=== PATIENT | female | born 1990 | race American Indian/Alaskan Native ===

== ENCOUNTER 2016-11-28 09:25 | Emergency (ER) | payer MEDICAID ==
--- NOTE | 2016-11-28 09:37 | EDM.PDOC ---
ED HISTORY OF PRESENT ILLNESS - General Chief Complaint: Respiratory Problem Stated Complaint: CHEST PAIN, BAD COLD Time Seen by Provider: 11/28/16 09:33 Source of Information: Reports: Patient, RN, RN notes reviewed History Limitations: Reports: No limitations - History of Present Illness INITIAL COMMENTS - FREE TEXT/NARRATIVE: C/O cough for approx. 4-6 weeks. It start when she got the flu, then Dx'd with bronchitis and tx'd with a Z-Jalil, but didn't get better. A few days ago she developed sharp pains in the left chest and upper back with coughing. Admits to some wheezing and occ. small amount of sputum production. Denies fever or chills. Timing/Duration: Reports: Constant Location, General: Reports: chest Quality: Reports: Sharp Improves with: Reports: None Worsens with: Reports: Breathing (and cough) Context, General: Denies: Activity, Exercise, Lifting, Trauma Associated Symptoms (General): Reports: no other symptoms - Related Data Allergies/ADRs: Allergies Allergy/AdvReac Type Severity Reaction Status Date / Time codeine Allergy Nausea Verified 11/28/16 09:33 Home Meds: Home Meds . 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 ED EXAM, GENERAL - Physical Exam Exam: See Below Exam Limited By: No limitations General Appearance: alert, WD/WN, no apparent distress, obese Ears: normal external exam Nose: normal inspection, normal mucosa, no blood Throat/Mouth: Normal inspection, Normal lips, Normal teeth, Normal gums, Normal oropharynx, Normal voice, No airway compromise Head: atraumatic, normocephalic Neck: normal inspection, supple, non-tender, full range of motion. No: lymphadenopathy (L), lymphadenopathy (R) Respiratory/Chest: no respiratory distress, no accessory muscle use, decreased breath sounds, wheezing (mild scattered wheezes throughout B/L upper lung baez ), other (harsh cough) Cardiovascular: normal peripheral pulses, regular rate, rhythm, no edema, no gallop, no JVD, no murmur, no rub GI/Abdominal: normal bowel sounds, soft, non tender, other (benign obese abdomen ) Back Exam: normal inspection Extremities: normal inspection Neurological: alert, oriented, CN II-XII intact, normal cognition, normal gait, no motor/sensory deficits Psychiatric: normal affect, normal mood Skin Exam: Warm, Dry, Intact, Normal color, No rash Course - Vital Signs Last Recorded V/S: Last Vital Signs Temp 36.4 C 11/28/16 09:44 Pulse 91 11/28/16 09:44 Resp 20 11/28/16 09:44 BP 136/65 11/28/16 09:44 Pulse Ox 100 11/28/16 09:44 - Orders/Labs/Meds Orders: Active Orders 24 hr Category Date Time Status RT Post Treatment Assessment [RC] Click To Edit Care 11/28/16 10:26 Active RT Pre-Treatment Assessment [RC] Click To Edit Care 11/28/16 10:26 Active Chest 2V [CR] Stat Exams 11/28/16 09:51 Taken Labs: Laboratory Tests 11/28/16 Range/Units 09:55 WBC 8.1 (5.0-10.0) 10^3/uL RBC 5.05 (4.2-5.4) 10^6/uL Hgb 14.2 (12.0-16.0) g/dL Hct 44.4 (37.0-47.0) % MCV 87.9 (80-100) fL MCH 28.1 (27.0-34.0) pg MCHC 32.0 L (33.0-35.0) g/dL Plt Count 263 (150-450) 10^3/uL Neut % (Auto) 58.5 (42.2-75.2) % Lymph % (Auto) 31.4 (20.5-50.1) % [place] % (Auto) 8.1 H (2-8) % Eos % (Auto) 1.8 (1.0-3.0) % Baso % (Auto) 0.2 (0.0-1.0) % Meds: Medications Discontinued Medications Generic Name Dose Route Start Last Admin Trade Name Savanna PRN Reason Stop Dose Admin Albuterol 6.7 gm 11/28/16 10:26 Proventil Hfa INH 11/28/16 10:27 ONETIME ONE Benzonatate 200 mg 11/28/16 10:26 Tessalon Perles PO 11/28/16 10:27 ONETIME ONE Prednisone 60 mg 11/28/16 10:25 Prednisone PO 11/28/16 10:26 ONETIME ONE - Radiology Interpretation Free Text/Narrative:: CXR: no focal infiltrates, see Rad. report. Departure - Departure Time of Disposition: 10:40 Disposition: Home, Self-Care 01 Condition: good Clinical Impression: Post-viral cough syndrome, Pleurisy without effusion RAD (reactive airway disease) Qualifiers: Asthma severity: mild intermittent Asthma complication type: with acute exacerbation Qualified Code(s): J45.21 - Mild intermittent asthma with (acute) exacerbation Instructions: Bronchospasm, Adult, [id number], Cough, Adult, [id number] Forms: ED Department Discharge Additional Instructions: Rx: Tessalon Perles 200mg Rx: Prednisone 20mg Rx: Zyrtec 10mg Use Albuterol inhaler with spacer: 2 puffs every four hours as needed for wheezing or cough. Follow up in clinic next week if not improving. - My Orders Last 24 Hours: My Active Orders 11/28/16 09:51 Chest 2V [CR] Stat 11/28/16 10:26 RT Post Treatment Assessment [RC] Click To Edit RT Pre-Treatment Assessment [RC] Click To Edit - Assessment/Plan Last 24 Hours: My Active Orders 11/28/16 09:51 Chest 2V [CR] Stat 11/28/16 10:26 RT Post Treatment Assessment [RC] Click To Edit RT Pre-Treatment Assessment [RC] Click To Edit
[2016-11-28 09:46] VITALS: BP 136/65
[2016-11-28] MEDS ORDERED: predniSONE 20 MG Tab PO ONE (10:25)
[2016-11-28] MEDS ORDERED: Albuterol 6.7 GM Inhaler INH ONE (10:26)
[2016-11-28] MEDS ORDERED: Benzonatate 100 MG Cap PO ONE (10:26)
--- NOTE | 2016-11-28 11:01 | CR ---
Clinical history: 26-year-old female cough and pleuritic chest pain. Interpretation: Less than optimal inspiratory effort morbidly obese female with severe kyphosis of t he dorsal spine but lung baez are clear. Normal cardiac silhouette without alveolar edema or dependent effusion. No bronchial "cuffing", lung mass or focal lobar pneumonia. No atelectasis/collapse. No pneumothorax. CONCLUSION: No acute cardiopulmonary abnormality.
== END 2016-11-28 10:55 | disposition home or self-care (01) ==
LOC: DL.ED 09:25
DX: J45.21 Mild intermittent asthma with (acute) exacerbation (principal); R09.1 Pleurisy; E66.9 Obesity, unspecified; Z88.5 Allergy status to narcotic agent
CPT/HCPCS: 36415; 71020; 85025; 99284; A9270

== ENCOUNTER 2018-10-20 13:30 | Emergency (ER) | payer MEDICAID ==
[2018-10-20 13:51] VITALS: BP 145/97
--- NOTE | 2018-10-20 16:01 | EDM.PDOC ---
Scribed by Aleyda Burkett 10/20/[id number] NP ED HPI GENERAL MEDICAL PROBLEM - General Chief Complaint: Respiratory Problem Stated Complaint: BAD COLD, CANT CATCH BREATH Time Seen by Provider: 10/20/18 14:11 Source of Information: Reports: Patient, RN, RN Notes Reviewed History Limitations: Reports: No Limitations - History of Present Illness INITIAL COMMENTS - FREE TEXT/NARRATIVE: Patient presents to ER with complaint of cough x3 days. She has a productive green/brown sputum. She has had chills, cough, pain in chest, shortness of breath, sinus pressure and congestion, headache and runny nose. No fever, nausea , vomiting or diarrhea. Onset Date: 10/17/18 Duration: Getting Worse Location: Reports: Chest Quality: Reports: Ache Severity: Mild Improves with: Reports: None Worsens with: Reports: None Associated Symptoms: Reports: No Other Symptoms Chest Pain Score (Numeric/FACES): 6 - Related Data Allergies Allergy/AdvReac Type Severity Reaction Status Date / Time codeine Allergy Nausea Verified 10/20/18 13:51 Home Meds: Home Meds . [No Known Home Meds] 11/28/16 [History] Past Medical History - Past Health History Medical/Surgical History: Denies Medical/Surgical History Psychiatric History: Reports: Anxiety Endocrine/Metabolic History: Reports: Obesity/BMI 30+ - Infectious Disease History Infectious Disease History: Reports: Chicken Pox, Shingles - Past Surgical History GI Surgical History: Reports: Appendectomy Social & Family History - Family History Family Medical History: Noncontributory - Tobacco Use Smoking Status *Q: Never Smoker Second Hand Smoke Exposure: No - Caffeine Use Caffeine Use: Reports: Soda - Recreational Drug Use Recreational Drug Use: No - Living Situation & Occupation Living situation: Reports: with Significant Other, with Family Occupation: Employed ED ROS GENERAL - Review of Systems Review Of Systems: ROS reveals no pertinent complaints other than HPI. ED EXAM, GENERAL - Physical Exam Exam: See Below Exam Limited By: No Limitations General Appearance: Alert, WD/WN, No Apparent Distress Eye Exam: Bilateral Eye: EOMI, Normal Inspection, PERRL Ears: Normal External Exam, Normal Canal, Hearing Grossly Normal, Normal TMs Nose: Other (sinus congestion and runny nose. ) Throat/Mouth: Normal Inspection, Normal Lips, Normal Teeth, Normal Gums, Normal Oropharynx, Normal Voice, No Airway Compromise Head: Atraumatic, Normocephalic Neck: Other (bilateral anterior cervical x2. ) Respiratory/Chest: No Respiratory Distress, Lungs Clear, Normal Breath Sounds, No Accessory Muscle Use, Chest Non-Tender Cardiovascular: Normal Peripheral Pulses, Regular Rate, Rhythm, No Edema, No Gallop, No JVD, No Murmur, No Rub GI/Abdominal: Normal Bowel Sounds, Soft, Non-Tender, No Organomegaly, No Distention, No Abnormal Bruit, No Mass (Female) Exam: Deferred Rectal (Female) Exam: Deferred Back Exam: Normal Inspection, Full Range of Motion, NT Extremities: Normal Inspection, Normal Range of Motion, Non-Tender, Normal Capillary Refill, No Pedal Edema Neurological: Alert, Oriented, CN II-XII Intact, Normal Cognition, Normal Gait, Normal Reflexes, No Motor/Sensory Deficits Psychiatric: Normal Affect, Normal Mood Skin Exam: Cool (and clammy) Lymphatic: Other (+2 anterior cervical) Course - Vital Signs Last Recorded V/S: Last Vital Signs Temp 97.4 F 10/20/18 13:48 Pulse 90 10/20/18 13:48 Resp 18 10/20/18 13:48 BP 145/97 H 10/20/18 13:48 Pulse Ox 100 10/20/18 13:48 Departure - Departure Time of Disposition: 14:20 Disposition: Home, Self-Care 01 Condition: Fair Clinical Impression: Viral upper respiratory infection - Discharge Information *PRESCRIPTION DRUG MONITORING PROGRAM REVIEWED*: No *COPY OF PRESCRIPTION DRUG MONITORING REPORT IN PATIENT SUGAR: No Instructions: Cough, Adult, [id number], Viral Respiratory Infection, Easy-To- Read, Acute Bronchitis, Adult, [id number] Referrals: Bob León MD [Primary Care Provider] - Forms: ED Department Discharge Additional Instructions: May use Tylenol and/or ibuprofen as directed for pain/fever Continue to use Mucinex May use over the counter decongestant as directed Continue to use Robitussin as directed RX: Jessica Grande I have read and agree with the documentation that has been completed regarding this visit. By signing this record, I attest that the documentation was completed in my physical presence and is an accurate record of the encounter.
== END 2018-10-20 14:25 | disposition home or self-care (01) ==
LOC: DL.ED 13:30
DX: J06.9 Acute upper respiratory infection, unspecified (principal); Z88.5 Allergy status to narcotic agent
CPT/HCPCS: 99282

== ENCOUNTER 2021-06-24 19:47 | Emergency (ER) | payer MEDICAID ==
[2021-06-24 20:28] VITALS: BP 136/79; PULSE 77
[2021-06-24 22:26] LABS: CORONAVIRUS COVID-19 NAA POSITIVE (NEGATIVE)
--- NOTE | 2021-06-24 22:58 | EDM.PDOC ---
ED HPI GENERAL MEDICAL PROBLEM - General Chief Complaint: Respiratory Problem Stated Complaint: NOT FEELING WELL,COLD SYMPTOMS Time Seen by Provider: 06/24/21 22:50 Source of Information: Reports: Patient History Limitations: Reports: No Limitations - History of Present Illness INITIAL COMMENTS - FREE TEXT/NARRATIVE: This 31 yo female patient reports to the ED due to loosing her taste and smell. The patient reports she felt like she was getting a cold on 06/22/21, felt a little worse on 06/23/21 and noticed that she could not taste or smell anything today. The patient reports she did go to [facility] yesterday, but was only around a small number of people. 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: Reports: None Musculoskeletal History: Reports: None Neurological History: Reports: Head Trauma Psychiatric History: Reports: Anxiety Endocrine/Metabolic History: Reports: Obesity/BMI 30+ Hematologic History: Reports: None Immunologic History: Reports: None Oncologic (Cancer) History: Reports: None Dermatologic History: Reports: None - Infectious Disease History Infectious Disease History: Reports: Chicken Pox, Shingles - Past Surgical History Head Surgeries/Procedures: Reports: None HEENT Surgical History: Reports: Tonsillectomy GI Surgical History: Reports: Appendectomy Social & Family History - Family History Family Medical History: No Pertinent Family History - Tobacco Use Tobacco Use Status *Q: Never Tobacco User Second Hand Smoke Exposure: No - Caffeine Use Caffeine Use: Reports: None - Recreational Drug Use Recreational Drug Use: Yes Recreational Drug Type: Reports: Marijuana/Hashish Recreational Drug Use Frequency: Daily - Living Situation & Occupation Living situation: Reports: with Significant Other, with Family Occupation: Employed ED ROS GENERAL - Review of Systems Review Of Systems: Comprehensive ROS is negative, except as noted in HPI. ED EXAM, GENERAL - Physical Exam Exam: See Below Exam Limited By: No Limitations General Appearance: Alert, WD/WN, No Apparent Distress, Obese Eye Exam: Bilateral Eye: EOMI, Normal Inspection, PERRL Ears: Normal External Exam, Normal Canal, Hearing Grossly Normal, Normal TMs Nose: Normal Inspection, Normal Mucosa, No Blood Throat/Mouth: Normal Inspection, Normal Lips, Normal Teeth, Normal Gums, Normal Oropharynx, Normal Voice, No Airway Compromise Head: Atraumatic, Normocephalic Neck: Normal Inspection, Supple, Non-Tender, Full Range of Motion Respiratory/Chest: No Respiratory Distress, Lungs Clear, Normal Breath Sounds, No Accessory Muscle Use, Chest Non-Tender Cardiovascular: Normal Peripheral Pulses, Regular Rate, Rhythm, No Edema, No Gallop, No JVD, No Murmur, No Rub GI/Abdominal: Normal Bowel Sounds, Soft, Non-Tender, No Organomegaly, No Distention, No Abnormal Bruit, No Mass (Female) Exam: Deferred Rectal (Female) Exam: Deferred Back Exam: Normal Inspection, Full Range of Motion, NT Extremities: Normal Inspection, Normal Range of Motion, Non-Tender, Normal Capillary Refill, No Pedal Edema Neurological: Alert, Oriented, CN II-XII Intact, Normal Cognition, Normal Gait, Normal Reflexes, No Motor/Sensory Deficits Psychiatric: Normal Affect, Normal Mood Skin Exam: Warm, Dry, Intact, Normal Color, No Rash Lymphatic: No Adenopathy Course - Vital Signs Last Recorded V/S: Last Vital Signs Temp 97.7 F 06/24/21 20:25 Pulse 77 06/24/21 20:25 Resp 18 06/24/21 20:25 BP 136/79 06/24/21 20:25 Pulse Ox 100 06/24/21 20:25 - Orders/Labs/Meds Labs: Laboratory Tests 06/24/21 Range/Units 20:20 Influenza Type A RNA Negative (NEGATIVE) Influenza Type B RNA Negative (NEGATIVE) SARS-CoV-2 RNA ([facility]) Positive H (NEGATIVE) Departure - Departure Time of Disposition: 22:56 Disposition: Home, Self-Care 01 Condition: Fair Clinical Impression: COVID - Discharge Information *PRESCRIPTION DRUG MONITORING PROGRAM REVIEWED*: Not Applicable *COPY OF PRESCRIPTION DRUG MONITORING REPORT IN PATIENT SUGAR: Not Applicable Instructions: COVID-19: What Your Test Results Mean - CDC (12/27/2019), COVID- 19 Frequently Asked Questions, How to Protect Yourself and Others - [facility] (03/11/2021), Symptoms of COVID-19 - [facility] (09/20/2020) Forms: ED Department Discharge Care Plan Goals: The patient was advised of the examination and lab results during the visit. The patient was advised to quarantine over the next week. The patient should advise any close contact regarding the results of her lab testing. If the patient has any additional symptoms or concerns, the patient should either return to the emergency department or visit her primary care facility. Sepsis Event Note (ED) - Evaluation Sepsis Screening Result: No Definite Risk - Focused Exam Vital Signs: Vital Signs Temp Pulse Resp BP Pulse Ox 06/24/21 20:25 97.7 F 77 18 136/79 100
== END 2021-06-24 23:08 | disposition home or self-care (01) ==
LOC: DL.ED 19:47
DX: U07.1 COVID-19 (principal); E66.9 Obesity, unspecified; Z68.41 Body mass index [BMI] 40.0-44.9, adult; Z88.5 Allergy status to narcotic agent
CPT/HCPCS: 0240U; 99283